=== PATIENT | female | born 2000 | race Caucasian/White ===

== ENCOUNTER 2021-12-02 07:25 | Emergency (ER) | payer BC ==
[~2021-12-02] VITALS: Ht 162.6 cm; Wt 54.5 kg
[2021-12-02 07:34] VITALS: BP 134/94
[2021-12-02] MEDS ORDERED: CELEXA10 MG PO (07:39)
[2021-12-02 08:39] VITALS: PULSE 85
== END 2021-12-02 08:39 | disposition home or self-care (01) ==
LOC: COL.ER 07:25
DX: S61.210A Laceration without foreign body of right index finger without damage to nail, initial encounter (principal); Z23 Encounter for immunization; W26.0XXA Contact with knife, initial encounter; Y93.G1 Activity, food preparation and clean up

== ENCOUNTER → 2021-12-10 | Outpatient (CLI) | payer BC ==
[~2021-12-10] MED LIST: CELEXA10 MG PO
[2021-12-10 15:20] VITALS: BP 133/78; PULSE 81; TEMP 98.5
== END ==
LOC: COL.ER 14:48
DX: Z48.02 Encounter for removal of sutures (principal)